=== PATIENT | female | born 1940 | race Two or more races ===

== ENCOUNTER 2021-04-27 17:07 | Inpatient (IN) | payer OTHER ==
[~2021-04-27] VITALS: Ht 160 cm; Wt 54.0 kg
[2021-04-27 18:32] LABS: Basophils # (auto) 0.1 10 ^3/uL (0-0.2); Basophils % (auto) 0.4 % (0.0-2.0); Eosinophils # (auto) 0 10 ^3/uL (0-0.8); Hematocrit 42.3 % (36.0-46.0); Hemoglobin 14.2 g/dL (12.2-16.2); Lymphocytes # (auto) 1.3 10 ^3/uL (0.4-5.4); Lymphocytes % (auto) 11.9 % (10.0-50.0); Mean Corpuscular Hemoglobin 28.7 pg (28.0-32.0); Mean Corpuscular Hgb Conc. 33.5 g/dL (32.0-36.0); Mean Corpuscular Volume 85.7 fL (80.0-100.0); Monocytes # (auto) 0.5 10 ^3/uL (0-1.3); Monocytes % (auto) 4.1 % (0.0-12.0); Neutrophils # (auto) 9.4 10 ^3/uL (1.6-8.6); Neutrophils % (auto) 83.6 % (37.0-80.0); Nucleated Red Blood Cells % 0.1 %; Red Blood Cells 4.94 10^6/uL (4.0-5.20); Red Cell Distribution Width 14.8 % (11.8-14.3); White Blood Cell 11.3 10^3/uL (4.4-10.8)
[2021-04-27 18:44] LABS: Albumin 4.1 g/dL (3.4-5.0); Calcium 9.7 mg/dL (8.5-10.1); Magnesium 2.1 mg/dL (1.6-2.6); Potassium 4.1 mmol/L (3.5-5.1)
[2021-04-27 18:49] LABS: Bilirubin, Total 0.5 mg/dL (0.2-1.0); Total Protein 7.7 g/dL (6.4-8.2)
[2021-04-27] MEDS ORDERED: MORPHINE SULFATE INJECTION 2 MG/ML SYRG IV ONE (19:00)
[2021-04-27] MEDS ORDERED: ONDANSETRON HCL 4 MG/2 ML VIAL IV ONE (19:00)
[2021-04-27] MEDS ORDERED: SODIUM CHLOR 0.9% PF (SALINE LOCK) 10ML VIAL/SYR IV ONE (19:00)
[2021-04-27] MEDS ORDERED: SOD CHL 0.45% 1,000 ML IV ONE (19:15)
[2021-04-27 20:18] LABS: Lactic Acid w/Reflex 3.5 mmol/L (0.4-2.0)
[2021-04-27] MEDS ORDERED: HYDROcodone-ACET 5/325MG TAB PO PRN (23:15)
[2021-04-27] MEDS ORDERED: SODIUM CHLORIDE 0.9% 1,000 ML IV SCH (23:15)
[2021-04-27] MEDS: MORPHINE SULFATE 4 MG/ML SYR/VIAL IV PRN (23:36)
[2021-04-27] MEDS: PIPERACILLIN-TAZOB 3.375GM 100 ML IV SCH (23:38)
[2021-04-27] MEDS ORDERED: metroNIDAZOLE 500MG/100ML 100 ML IV ONE (23:45)
[2021-04-28] VITALS (31 sets, daily range): BP systolic 89–146; BP diastolic 37–81
[2021-04-28] MEDS ORDERED: MORPHINE SULFATE INJECTION 2 MG/ML SYRG IV PRN (00:15)
[2021-04-28] MEDS ORDERED: NITROGLYCERIN 0.4 MG SL TAB SL PRN (00:15)
[2021-04-28] MEDS ORDERED: LEVO50TA7 PO (05:03)
[2021-04-28] MEDS ORDERED: OMEP-260 PO (05:03)
[2021-04-28] MEDS ORDERED: PARO1TAB33 PO (05:04)
[2021-04-28] MEDS ORDERED: ATOR20TA50 PO (05:04)
[2021-04-28] MEDS: MORPHINE SULFATE 4 MG/ML SYR/VIAL IV PRN (05:08)
[2021-04-28] MEDS ORDERED: metroNIDAZOLE 500MG/100ML 100 ML IV SCH (06:00)
[2021-04-28] MEDS: PIPERACILLIN-TAZOB 3.375GM 100 ML IV SCH ×2 (06:52→13:41)
[2021-04-28] MEDS ORDERED: LACTATED RINGER'S 1,000 ML IV SCH (07:45)
[2021-04-28] MEDS: metroNIDAZOLE 500MG/100ML 100 ML IV SCH ×4 (09:05→23:39)
[2021-04-28 09:10] LABS: Basophils # (auto) 0 10 ^3/uL (0-0.2); Basophils % (auto) 0.1 % (0.0-2.0); Eosinophils # (auto) 0 10 ^3/uL (0-0.8); Hematocrit 42.1 % (36.0-46.0); Lymphocytes # (auto) 0.9 10 ^3/uL (0.4-5.4); Mean Corpuscular Hemoglobin 28.4 pg (28.0-32.0); Mean Corpuscular Hgb Conc. 33.3 g/dL (32.0-36.0); Mean Corpuscular Volume 85.5 fL (80.0-100.0); Monocytes % (auto) 7.4 % (0.0-12.0); Neutrophils # (auto) 11.4 10 ^3/uL (1.6-8.6); Neutrophils % (auto) 85.5 % (37.0-80.0); Nucleated Red Blood Cells % 0.2 %; Red Blood Cells 4.93 10^6/uL (4.0-5.20); Red Cell Distribution Width 14.7 % (11.8-14.3); White Blood Cell 13.3 10^3/uL (4.4-10.8)
[2021-04-28] MEDS ORDERED: OMNIPAQUE ORAL SOLN 500ml 12mg/ml PO ONE (09:56)
[2021-04-28] MEDS ORDERED: FAMOTIDINE (10MG/ML) 2ML VL IV SCH (10:00)
[2021-04-28 10:42] LABS: Lactic Acid w/Reflex 3.8 mmol/L (0.4-2.0)
[2021-04-28 10:53] LABS: Potassium 3.7 mmol/L (3.5-5.1)
[2021-04-28] MEDS ORDERED: PANTOPRAZOLE 40 MG/10 ML VIAL INJ IV ONE (11:00)
[2021-04-28 11:33] LABS: INR 1.08 (0.9-1.15); Partial Thromboplastin Time 25.9 sec (23.6-33.0)
[2021-04-28 11:36] LABS: Albumin 3.4 g/dL (3.4-5.0); BUN/Creatinine Ratio 20.3; Bilirubin, Total 0.7 mg/dL (0.2-1.0); Calcium 8.6 mg/dL (8.5-10.1); Total Protein 6.9 g/dL (6.4-8.2)
[2021-04-28] MEDS ORDERED: IOHEXOL 300 MG/ML 100ML BOTTLE IJ ONE (12:06)
[2021-04-28] MEDS ORDERED: MIDAZOLAM HCL 2MG/2ML 2ml VIAL (1mg/ml) ONE (13:31)
[2021-04-28] MEDS ORDERED: ROCURONIUM 10MG/ML 10ML VIAL IV ONE (13:31)
[2021-04-28] MEDS ORDERED: fentaNYL CITRATE 100 MCG/2 ML VL ONE (13:31)
[2021-04-28] MEDS ORDERED: fentaNYL CITRATE 5 ML ONE (13:31)
[2021-04-28] MEDS ORDERED: HYDROmorphone HCL 2 MG/ML VL ONE (13:31)
[2021-04-28] MEDS ORDERED: ONDANSETRON HCL 4 MG/2 ML VIAL ONE (13:32)
[2021-04-28] MEDS ORDERED: SODIUM CHLORIDE LOCK 10 ML ONE (13:32)
[2021-04-28] MEDS ORDERED: NEOSTIGMINE 1 MG/ML INJ (10mg/10ML VIAL) ONE (13:32)
[2021-04-28] MEDS ORDERED: GLYCOPYRROLATE 0.2 MG/ML 1ML VIAL ONE (13:32)
[2021-04-28] MEDS ORDERED: ETOMIDATE (2MG/ML) 20ML VIAL IV ONE (13:32)
[2021-04-28] MEDS ORDERED: POVIDONE IODINE 10 % TOPICAL OINT 30GM TOP ONE (15:16)
[2021-04-28] MEDS ORDERED: MORPHINE SULFATE 4 MG/ML SYR/VIAL IV PRN (15:45)
[2021-04-28] MEDS ORDERED: METOCLOPRAMIDE HCL 5MG/ml INJ 2ml VIAL IV PRN (15:45)
[2021-04-28] MEDS ORDERED: HYDROmorphone HCL 2 MG/ML VL IV PRN (15:45)
[2021-04-28] MEDS: D5W/SOD CHL 0.45%/KCL 20MEQ 1,000 ML IV SCH ×2 (16:30→22:35)
[2021-04-28] MEDS: MIDAZOLAM DRIP 50 mg/50mL 50 ML IV SCH (16:54)
[2021-04-28] MEDS: NOREPINEPHRINE 8 MG/250ML KIT 250 ML IV SCH (17:30)
[2021-04-28] MEDS: PIPERACILLIN-TAZOB 2.25GM 50 ML IV SCH ×2 (18:00→23:41)
[2021-04-28] MEDS: fentaNYL Drip 2500mCg/250mlNS 250 ML IV SCH (21:22)
[2021-04-28] MEDS: LATANOPROST 0.005 % OPTH(EYE) SOL 2.5ML EACHEYE SCH (22:00)
[2021-04-28] MEDS: ATORVASTATIN 20 MG TAB PO SCH (22:00)
[2021-04-29] VITALS (83 sets, daily range): BP systolic 97–139; BP diastolic 34–77
[2021-04-29 04:35] LABS: Basophils # (auto) 0 10 ^3/uL (0-0.2); Eosinophils # (auto) 0 10 ^3/uL (0-0.8); Hemoglobin 9.6 g/dL (12.2-16.2); Lymphocytes # (auto) 0.9 10 ^3/uL (0.4-5.4); Monocytes # (auto) 0.8 10 ^3/uL (0-1.3); Neutrophils # (auto) 9.4 10 ^3/uL (1.6-8.6); Nucleated Red Blood Cells % 0.1 %; Red Cell Distribution Width 17.1 % (11.8-14.3); White Blood Cell 11.1 10^3/uL (4.4-10.8)
[2021-04-29 04:37] LABS: Basophils % (auto) 0.2 % (0.0-2.0); Hematocrit 32.6 % (36.0-46.0); Lymphocytes % (auto) 8.2 % (10.0-50.0); Mean Corpuscular Hemoglobin 28.9 pg (28.0-32.0); Mean Corpuscular Hgb Conc. 29.4 g/dL (32.0-36.0); Mean Corpuscular Volume 98.3 fL (80.0-100.0); Monocytes % (auto) 7.4 % (0.0-12.0); Neutrophils % (auto) 84.2 % (37.0-80.0); Red Blood Cells 3.32 10^6/uL (4.0-5.20)
[2021-04-29 04:57] LABS: INR 1.26 (0.9-1.15); Partial Thromboplastin Time 35.2 sec (23.6-33.0)
[2021-04-29] MEDS: metroNIDAZOLE 500MG/100ML 100 ML IV SCH ×3 (05:08→22:07)
[2021-04-29] MEDS: MIDAZOLAM DRIP 50 mg/50mL 50 ML IV SCH (05:51)
[2021-04-29] MEDS: LEVOTHYROXINE SODIUM 50 MCG TAB PO SCH (06:00)
[2021-04-29] MEDS: PIPERACILLIN-TAZOB 2.25GM 50 ML IV SCH ×2 (06:10→12:20)
[2021-04-29] MEDS: NOREPINEPHRINE 8 MG/250ML KIT 250 ML IV SCH ×2 (06:40→14:15)
[2021-04-29] MEDS: D5W/SOD CHL 0.45%/KCL 20MEQ 1,000 ML IV SCH (06:55)
[2021-04-29] MEDS: PARoxetine 20 MG TAB PO SCH (09:06)
[2021-04-29] MEDS: PANTOPRAZOLE 40 MG/10 ML VIAL INJ IV SCH (10:00)
[2021-04-29] MEDS ORDERED: FAMOTIDINE (10MG/ML) 2ML VL IV SCH (10:00)
[2021-04-29 10:21] LABS: Alkaline Phosphatase 54 U/L (45-117); Anion Gap 12 (5-15); Aspartate Aminotransferase 57 U/L (15-37); Blood Urea Nitrogen 34 mg/dL (7-18); Carbon Dioxide 14 mmol/L (21-32); Chloride 110 mmol/L (98-107); GFR African American 35 mL/min; GFR Non-African American 29 mL/min; Glucose 149 mg/dL (74-106); Potassium 5.5 mmol/L (3.5-5.1); Sodium 136 mmol/L (136-145)
[2021-04-29 10:22] LABS: Alanine Aminotransferase 22 U/L (13-56); Albumin 2.6 g/dL (3.4-5.0); Bilirubin, Total 0.7 mg/dL (0.2-1.0); Calcium 7.9 mg/dL (8.5-10.1)
[2021-04-29] MEDS ORDERED: OPTISON 3ml Vial for INJ IV ONE (10:48)
[2021-04-29] MEDS: D5W/SOD CHL 0.45% 1,000 ML IV SCH ×2 (12:00→20:42)
[2021-04-29] MEDS: fentaNYL Drip 2500mCg/250mlNS 250 ML IV SCH (16:15)
[2021-04-29] MEDS: ATORVASTATIN 20 MG TAB PO SCH (20:43)
[2021-04-29] MEDS: LATANOPROST 0.005 % OPTH(EYE) SOL 2.5ML EACHEYE SCH (22:00)
[2021-04-29] MEDS: SODIUM CHLOR 0.9% PF (SALINE LOCK) 10ML VIAL/SYR IV SCH (22:07)
[2021-04-30] VITALS (103 sets, daily range): BP systolic 83–127; BP diastolic 39–65
[2021-04-30] MEDS: MIDAZOLAM DRIP 50 mg/50mL 50 ML IV SCH ×2 (00:01→10:36)
[2021-04-30 04:22] LABS: Anion Gap 5 (5-15); Blood Urea Nitrogen 27 mg/dL (7-18); Calcium 7.8 mg/dL (8.5-10.1); Carbon Dioxide 21 mmol/L (21-32); Chloride 111 mmol/L (98-107); Glucose 133 mg/dL (74-106); Sodium 137 mmol/L (136-145)
[2021-04-30 04:24] LABS: BUN/Creatinine Ratio 19.3; Eosinophils # (auto) 0 10 ^3/uL (0-0.8); GFR African American 46 mL/min; GFR Non-African American 38 mL/min
[2021-04-30 04:27] LABS: Basophils # (auto) 0.1 10 ^3/uL (0-0.2); Basophils % (auto) 0.5 % (0.0-2.0); Hematocrit 33.5 % (36.0-46.0); Hemoglobin 10.9 g/dL (12.2-16.2); Lymphocytes # (auto) 1.5 10 ^3/uL (0.4-5.4); Lymphocytes % (auto) 7.5 % (10.0-50.0); Mean Corpuscular Hemoglobin 28.5 pg (28.0-32.0); Mean Corpuscular Hgb Conc. 32.7 g/dL (32.0-36.0); Mean Corpuscular Volume 87.1 fL (80.0-100.0); Monocytes # (auto) 1.8 10 ^3/uL (0-1.3); Monocytes % (auto) 9.1 % (0.0-12.0); Neutrophils # (auto) 16.6 10 ^3/uL (1.6-8.6); Neutrophils % (auto) 82.9 % (37.0-80.0); Red Blood Cells 3.85 10^6/uL (4.0-5.20); Red Cell Distribution Width 15.1 % (11.8-14.3); White Blood Cell 20.1 10^3/uL (4.4-10.8)
[2021-04-30] MEDS: D5W/SOD CHL 0.45% 1,000 ML IV SCH ×3 (04:30→20:00)
[2021-04-30] MEDS: metroNIDAZOLE 500MG/100ML 100 ML IV SCH ×2 (06:15→13:53)
[2021-04-30] MEDS: LEVOTHYROXINE SODIUM 50 MCG TAB PO SCH (06:17)
[2021-04-30] MEDS: PANTOPRAZOLE 40 MG/10 ML VIAL INJ IV SCH (09:29)
[2021-04-30] MEDS: SODIUM CHLOR 0.9% PF (SALINE LOCK) 10ML VIAL/SYR IV SCH ×2 (09:30→22:31)
[2021-04-30] MEDS: PARoxetine 20 MG TAB PO SCH (09:30)
[2021-04-30] MEDS: NOREPINEPHRINE 8 MG/250ML KIT 250 ML IV SCH ×2 (15:59)
[2021-04-30] MEDS: fentaNYL Drip 2500mCg/250mlNS 250 ML IV SCH (16:15)
[2021-04-30] MEDS: MEROPENEM 1GM IVPB 100 ML IV SCH (18:06)
[2021-04-30] MEDS: ATORVASTATIN 20 MG TAB PO SCH (22:00)
[2021-04-30] MEDS: LATANOPROST 0.005 % OPTH(EYE) SOL 2.5ML EACHEYE SCH (22:00)
[2021-05-01] VITALS (107 sets, daily range): BP systolic 87–140; BP diastolic 41–65
[2021-05-01] MEDS: D5W/SOD CHL 0.45% 1,000 ML IV SCH ×3 (04:50→18:26)
[2021-05-01] MEDS: MEROPENEM 1GM IVPB 100 ML IV SCH ×2 (05:55→17:28)
[2021-05-01] MEDS: LEVOTHYROXINE SODIUM 50 MCG TAB PO SCH (07:00)
[2021-05-01 07:09] LABS: Basophils # (auto) 0 10 ^3/uL (0-0.2); Basophils % (auto) 0.3 % (0.0-2.0); Eosinophils # (auto) 0 10 ^3/uL (0-0.8); Eosinophils % (auto) 0.1 % (0.0-7.0); Hematocrit 25.9 % (36.0-46.0); Hemoglobin 8.8 g/dL (12.2-16.2); Lymphocytes # (auto) 1.1 10 ^3/uL (0.4-5.4); Mean Corpuscular Hemoglobin 29.2 pg (28.0-32.0); Mean Corpuscular Hgb Conc. 33.8 g/dL (32.0-36.0); Mean Corpuscular Volume 86.2 fL (80.0-100.0); Monocytes # (auto) 0.9 10 ^3/uL (0-1.3); Monocytes % (auto) 8.2 % (0.0-12.0); Neutrophils # (auto) 8.4 10 ^3/uL (1.6-8.6); Neutrophils % (auto) 80.4 % (37.0-80.0); Nucleated Red Blood Cells % 0.1 %; Red Blood Cells 3.01 10^6/uL (4.0-5.20); White Blood Cell 10.4 10^3/uL (4.4-10.8)
[2021-05-01 07:25] LABS: Potassium 3.7 mmol/L (3.5-5.1)
[2021-05-01 08:38] LABS: BUN/Creatinine Ratio 12.9
[2021-05-01] MEDS: PANTOPRAZOLE 40 MG/10 ML VIAL INJ IV SCH (09:12)
[2021-05-01] MEDS: SODIUM CHLOR 0.9% PF (SALINE LOCK) 10ML VIAL/SYR IV SCH ×2 (09:13→22:50)
[2021-05-01] MEDS: PARoxetine 20 MG TAB PO SCH (09:13)
[2021-05-01] MEDS: MIDAZOLAM DRIP 50 mg/50mL 50 ML IV SCH (19:00)
[2021-05-01] MEDS: fentaNYL Drip 2500mCg/250mlNS 250 ML IV SCH (19:00)
[2021-05-01] MEDS: LATANOPROST 0.005 % OPTH(EYE) SOL 2.5ML EACHEYE SCH (22:50)
[2021-05-01] MEDS: ATORVASTATIN 20 MG TAB PO SCH (22:50)
[2021-05-02] VITALS (100 sets, daily range): BP systolic 81–202; BP diastolic 40–110
[2021-05-02 03:30] LABS: Basophils # (auto) 0 10 ^3/uL (0-0.2); Eosinophils # (auto) 0.1 10 ^3/uL (0-0.8); Hematocrit 23.2 % (36.0-46.0); Hemoglobin 7.8 g/dL (12.2-16.2); Lymphocytes # (auto) 1.1 10 ^3/uL (0.4-5.4); Mean Corpuscular Hemoglobin 29.3 pg (28.0-32.0); Monocytes # (auto) 0.8 10 ^3/uL (0-1.3); Neutrophils # (auto) 4.9 10 ^3/uL (1.6-8.6); White Blood Cell 6.9 10^3/uL (4.4-10.8)
[2021-05-02 03:34] LABS: Basophils % (auto) 0.1 % (0.0-2.0); Eosinophils % (auto) 1.1 % (0.0-7.0); Lymphocytes % (auto) 15.7 % (10.0-50.0); Mean Corpuscular Hgb Conc. 33.5 g/dL (32.0-36.0); Mean Corpuscular Volume 87.5 fL (80.0-100.0); Monocytes % (auto) 11.9 % (0.0-12.0); Neutrophils % (auto) 71.2 % (37.0-80.0); Nucleated Red Blood Cells % 0.3 %; Red Blood Cells 2.66 10^6/uL (4.0-5.20); Red Cell Distribution Width 14.8 % (11.8-14.3)
[2021-05-02 03:55] LABS: Potassium 3.1 mmol/L (3.5-5.1)
[2021-05-02 04:00] LABS: BUN/Creatinine Ratio 10.2; Calcium 7.3 mg/dL (8.5-10.1)
[2021-05-02] MEDS: D5W/SOD CHL 0.45% 1,000 ML IV SCH ×2 (06:01→13:26)
[2021-05-02] MEDS: MEROPENEM 1GM IVPB 100 ML IV SCH ×2 (06:02→17:31)
[2021-05-02] MEDS: LEVOTHYROXINE SODIUM 50 MCG TAB PO SCH (06:02)
[2021-05-02] MEDS: POTASSIUM CHL 10MEQ/50ML 50 ML IV SCH ×4 (08:05→13:33)
[2021-05-02] MEDS: PARoxetine 20 MG TAB PO SCH (10:00)
[2021-05-02] MEDS: PANTOPRAZOLE 40 MG/10 ML VIAL INJ IV SCH (10:02)
[2021-05-02] MEDS: SODIUM CHLOR 0.9% PF (SALINE LOCK) 10ML VIAL/SYR IV SCH ×2 (10:03→22:00)
[2021-05-02] MEDS: NOREPINEPHRINE 8 MG/250ML KIT 250 ML IV SCH (13:45)
[2021-05-02] MEDS: MIDAZOLAM DRIP 50 mg/50mL 50 ML IV SCH (16:15)
[2021-05-02] MEDS: ATORVASTATIN 20 MG TAB PO SCH (22:00)
[2021-05-02] MEDS: LATANOPROST 0.005 % OPTH(EYE) SOL 2.5ML EACHEYE SCH (22:00)
[2021-05-03] VITALS (65 sets, daily range): BP systolic 76–200; BP diastolic 41–102
[2021-05-03 03:42] LABS: Basophils # (auto) 0 10 ^3/uL (0-0.2); Basophils % (auto) 0.3 % (0.0-2.0); Eosinophils # (auto) 0.2 10 ^3/uL (0-0.8); Eosinophils % (auto) 3.9 % (0.0-7.0); Hematocrit 24.7 % (36.0-46.0); Hemoglobin 8.3 g/dL (12.2-16.2); Lymphocytes # (auto) 0.9 10 ^3/uL (0.4-5.4); Lymphocytes % (auto) 17.1 % (10.0-50.0); Mean Corpuscular Hgb Conc. 33.6 g/dL (32.0-36.0); Mean Corpuscular Volume 86.4 fL (80.0-100.0); Monocytes # (auto) 0.7 10 ^3/uL (0-1.3); Monocytes % (auto) 13.1 % (0.0-12.0); Neutrophils # (auto) 3.6 10 ^3/uL (1.6-8.6); Neutrophils % (auto) 65.6 % (37.0-80.0); Nucleated Red Blood Cells % 0.3 %; Red Blood Cells 2.86 10^6/uL (4.0-5.20); Red Cell Distribution Width 14.6 % (11.8-14.3); White Blood Cell 5.4 10^3/uL (4.4-10.8)
[2021-05-03 04:01] LABS: Potassium 3.1 mmol/L (3.5-5.1)
[2021-05-03 04:09] LABS: BUN/Creatinine Ratio 14.9; Calcium 7.9 mg/dL (8.5-10.1)
[2021-05-03] MEDS: MEROPENEM 1GM IVPB 100 ML IV SCH ×2 (04:56→17:54)
[2021-05-03] MEDS: LEVOTHYROXINE SODIUM 50 MCG TAB PO SCH (07:00)
[2021-05-03] MEDS: D5W/SOD CHL 0.45% 1,000 ML IV SCH ×4 (07:17→20:35)
[2021-05-03] MEDS ORDERED: POTASSIUM CHL 10MEQ/50ML 50 ML IV SCH (08:30)
[2021-05-03] MEDS: PANTOPRAZOLE 40 MG/10 ML VIAL INJ IV SCH (09:05)
[2021-05-03] MEDS: PARoxetine 20 MG TAB PO SCH (09:06)
[2021-05-03] MEDS: SODIUM CHLOR 0.9% PF (SALINE LOCK) 10ML VIAL/SYR IV SCH ×2 (09:06→22:37)
[2021-05-03] MEDS: POTASSIUM CHL 10MEQ/50ML 50 ML IV SCH ×6 (09:10→15:15)
[2021-05-03] MEDS ORDERED: FUROSEMIDE 20 MG/2 ML VIAL IV ONE (11:45)
[2021-05-03] MEDS: LABETALOL HCL 5 MG/ML 4ML SYRINGE IV PRN ×3 (12:24→16:49)
[2021-05-03] MEDS: NOREPINEPHRINE 8 MG/250ML KIT 250 ML IV SCH (13:45)
[2021-05-03] MEDS: fentaNYL Drip 2500mCg/250mlNS 250 ML IV SCH (16:15)
[2021-05-03] MEDS: MIDAZOLAM DRIP 50 mg/50mL 50 ML IV SCH (16:15)
[2021-05-03] MEDS: MORPHINE SULFATE 4 MG/ML SYR/VIAL IV PRN (19:50)
[2021-05-03] MEDS: ACETAMINOPHEN 325 MG TAB PO PRN (19:51)
[2021-05-03] MEDS: ATORVASTATIN 20 MG TAB PO SCH (22:00)
[2021-05-03] MEDS: LATANOPROST 0.005 % OPTH(EYE) SOL 2.5ML EACHEYE SCH (22:37)
[2021-05-04] VITALS (19 sets, daily range): BP systolic 133–179; BP diastolic 61–91
[2021-05-04 05:06] LABS: Basophils # (auto) 0 10 ^3/uL (0-0.2); Basophils % (auto) 0.3 % (0.0-2.0); Eosinophils # (auto) 0.1 10 ^3/uL (0-0.8); Eosinophils % (auto) 2.2 % (0.0-7.0); Hematocrit 29.1 % (36.0-46.0); Hemoglobin 9.7 g/dL (12.2-16.2); Lymphocytes # (auto) 0.9 10 ^3/uL (0.4-5.4); Mean Corpuscular Hemoglobin 28.7 pg (28.0-32.0); Mean Corpuscular Hgb Conc. 33.3 g/dL (32.0-36.0); Mean Corpuscular Volume 86.1 fL (80.0-100.0); Monocytes # (auto) 0.9 10 ^3/uL (0-1.3); Monocytes % (auto) 14.1 % (0.0-12.0); Neutrophils # (auto) 4.5 10 ^3/uL (1.6-8.6); Neutrophils % (auto) 69.4 % (37.0-80.0); Nucleated Red Blood Cells % 0.4 %; Red Blood Cells 3.38 10^6/uL (4.0-5.20); Red Cell Distribution Width 14.5 % (11.8-14.3); White Blood Cell 6.5 10^3/uL (4.4-10.8)
[2021-05-04 05:19] LABS: Calcium 8.4 mg/dL (8.5-10.1); Potassium 3.4 mmol/L (3.5-5.1)
[2021-05-04 05:22] LABS: BUN/Creatinine Ratio 6.1
[2021-05-04] MEDS: D5W/SOD CHL 0.45% 1,000 ML IV SCH (05:57)
[2021-05-04] MEDS: MEROPENEM 1GM IVPB 100 ML IV SCH ×2 (05:57→17:52)
[2021-05-04] MEDS: fentaNYL Drip 2500mCg/250mlNS 250 ML IV SCH ×2 (07:49→09:06)
[2021-05-04] MEDS: PANTOPRAZOLE 40 MG/10 ML VIAL INJ IV SCH (09:04)
[2021-05-04] MEDS: PARoxetine 20 MG TAB PO SCH (09:05)
[2021-05-04] MEDS: SODIUM CHLOR 0.9% PF (SALINE LOCK) 10ML VIAL/SYR IV SCH ×2 (09:05→21:32)
[2021-05-04] MEDS: NOREPINEPHRINE 8 MG/250ML KIT 250 ML IV SCH (09:05)
[2021-05-04] MEDS: MORPHINE SULFATE 4 MG/ML SYR/VIAL IV PRN (09:05)
[2021-05-04] MEDS: MIDAZOLAM DRIP 50 mg/50mL 50 ML IV SCH (09:06)
[2021-05-04] MEDS: HYDROmorphone HCL 2 MG/ML VL IV PRN ×5 (10:30→21:50)
[2021-05-04] MEDS ORDERED: TPN PER PHARMACY 0 ML IV SCH (13:45)
[2021-05-04] MEDS: POTASSIUM CHL 10MEQ/50ML 50 ML IV SCH ×4 (14:29→19:17)
[2021-05-04] MEDS: KETOROLAC TROMETH 30 MG/ML 1ML VIAL IV PRN ×2 (16:15→22:03)
[2021-05-04] MEDS ORDERED: AMINO ACID INFUSION IN D10W 1,000 ML IV NR (20:00)
[2021-05-04] MEDS: LATANOPROST 0.005 % OPTH(EYE) SOL 2.5ML EACHEYE SCH (21:32)
[2021-05-04] MEDS: ATORVASTATIN 20 MG TAB PO SCH (21:32)
[2021-05-04] MEDS: LABETALOL HCL 5 MG/ML 4ML SYRINGE IV PRN (22:04)
[2021-05-05] VITALS (17 sets, daily range): BP systolic 116–178; BP diastolic 62–80
[2021-05-05] MEDS ORDERED: DEXTROSE (50%) 50ML SYRG IV SCH
[2021-05-05] MEDS: LABETALOL HCL 5 MG/ML 4ML SYRINGE IV PRN ×3 (02:21→14:36)
[2021-05-05] MEDS: HYDROmorphone HCL 2 MG/ML VL IV PRN ×3 (02:49→20:00)
[2021-05-05 03:32] LABS: Basophils # (auto) 0.1 10 ^3/uL (0-0.2); Basophils % (auto) 0.8 % (0.0-2.0); Eosinophils # (auto) 0.3 10 ^3/uL (0-0.8); Eosinophils % (auto) 4.5 % (0.0-7.0); Hematocrit 30.6 % (36.0-46.0); Hemoglobin 10.2 g/dL (12.2-16.2); Lymphocytes # (auto) 1.1 10 ^3/uL (0.4-5.4); Lymphocytes % (auto) 15.8 % (10.0-50.0); Mean Corpuscular Hemoglobin 28.8 pg (28.0-32.0); Mean Corpuscular Hgb Conc. 33.5 g/dL (32.0-36.0); Mean Corpuscular Volume 85.9 fL (80.0-100.0); Monocytes # (auto) 0.9 10 ^3/uL (0-1.3); Monocytes % (auto) 12.7 % (0.0-12.0); Neutrophils # (auto) 4.5 10 ^3/uL (1.6-8.6); Neutrophils % (auto) 66.2 % (37.0-80.0); Nucleated Red Blood Cells % 0.2 %; Red Blood Cells 3.56 10^6/uL (4.0-5.20); Red Cell Distribution Width 14.7 % (11.8-14.3); White Blood Cell 6.7 10^3/uL (4.4-10.8)
[2021-05-05 03:42] LABS: BUN/Creatinine Ratio 19.6; Calcium 8.8 mg/dL (8.5-10.1); Potassium 4.4 mmol/L (3.5-5.1)
[2021-05-05] MEDS: ACCU-CHEK COMFORT CURVE STRIP VI SCH ×4 (05:50→18:00)
[2021-05-05] MEDS: KETOROLAC TROMETH 30 MG/ML 1ML VIAL IV PRN (05:50)
[2021-05-05] MEDS: MEROPENEM 1GM IVPB 100 ML IV SCH ×2 (05:50→18:00)
[2021-05-05] MEDS: InsuLIN REG 1unit/0.01ml Soln (100units/ml) SC SCH ×4 (05:50→18:00)
[2021-05-05] MEDS: ACETAMINOPHEN 325 MG TAB PO PRN ×2 (08:44→20:00)
[2021-05-05] MEDS: PARoxetine 20 MG TAB PO SCH (10:00)
[2021-05-05] MEDS: LEVOTHYROXINE SODIUM 100 MCG/5 ML INJ IV SCH (10:00)
[2021-05-05] MEDS: SODIUM CHLOR 0.9% PF (SALINE LOCK) 10ML VIAL/SYR IV SCH ×2 (10:04→22:00)
[2021-05-05] MEDS: PANTOPRAZOLE 40 MG/10 ML VIAL INJ IV SCH (10:04)
[2021-05-05 11:40] LABS: Albumin 2.3 g/dL (3.4-5.0); Bilirubin, Direct 0.1 mg/dL (0-0.2); Magnesium 2.5 mg/dL (1.6-2.6)
[2021-05-05 11:43] LABS: Bilirubin, Total 0.4 mg/dL (0.2-1.0); Phosphorus 2.9 mg/dL (2.5-4.90); Total Protein 6.1 g/dL (6.4-8.2)
[2021-05-05] MEDS: NOREPINEPHRINE 8 MG/250ML KIT 250 ML IV SCH (13:45)
[2021-05-05] MEDS ORDERED: TPN PER PHARMACY IV NR ×8 (20:00)
[2021-05-05] MEDS: ATORVASTATIN 20 MG TAB PO SCH (22:00)
[2021-05-05] MEDS: LATANOPROST 0.005 % OPTH(EYE) SOL 2.5ML EACHEYE SCH (22:00)
[2021-05-06] VITALS: BP 121/66
[2021-05-06 05:00] VITALS: BP 139/69
[2021-05-06 05:20] LABS: Basophils # (auto) 0 10 ^3/uL (0-0.2); Basophils % (auto) 0.6 % (0.0-2.0); Eosinophils # (auto) 0.3 10 ^3/uL (0-0.8); Eosinophils % (auto) 3.7 % (0.0-7.0); Hematocrit 34.3 % (36.0-46.0); Hemoglobin 11.5 g/dL (12.2-16.2); Lymphocytes % (auto) 12.7 % (10.0-50.0); Mean Corpuscular Hemoglobin 28.7 pg (28.0-32.0); Mean Corpuscular Hgb Conc. 33.4 g/dL (32.0-36.0); Monocytes # (auto) 0.8 10 ^3/uL (0-1.3); Monocytes % (auto) 10.4 % (0.0-12.0); Neutrophils # (auto) 5.5 10 ^3/uL (1.6-8.6); Neutrophils % (auto) 72.6 % (37.0-80.0); Nucleated Red Blood Cells % 0.2 %; Red Blood Cells 3.99 10^6/uL (4.0-5.20); Red Cell Distribution Width 14.6 % (11.8-14.3); White Blood Cell 7.5 10^3/uL (4.4-10.8)
[2021-05-06 05:53] LABS: Albumin 2.5 g/dL (3.4-5.0); BUN/Creatinine Ratio 31.1; Calcium 9.2 mg/dL (8.5-10.1); Magnesium 2.7 mg/dL (1.6-2.6); Phosphorus 2.9 mg/dL (2.5-4.90); Potassium 3.8 mmol/L (3.5-5.1)
[2021-05-06 05:56] LABS: Bilirubin, Total 0.4 mg/dL (0.2-1.0); Total Protein 6.4 g/dL (6.4-8.2)
[2021-05-06] MEDS: ACCU-CHEK COMFORT CURVE STRIP VI SCH ×5 (05:58→23:38)
[2021-05-06] MEDS: InsuLIN REG 1unit/0.01ml Soln (100units/ml) SC SCH ×5 (05:58→23:38)
[2021-05-06] MEDS: MEROPENEM 1GM IVPB 100 ML IV SCH ×2 (05:58→18:18)
[2021-05-06] MEDS: HYDROmorphone HCL 2 MG/ML VL IV PRN ×3 (06:01→21:59)
[2021-05-06 06:31] LABS: Pre Albumin 19.4 mg/dL (20.0-40.0)
[2021-05-06] MEDS: PARoxetine 20 MG TAB PO SCH (10:00)
[2021-05-06] MEDS: PANTOPRAZOLE 40 MG/10 ML VIAL INJ IV SCH (10:35)
[2021-05-06] MEDS: SODIUM CHLOR 0.9% PF (SALINE LOCK) 10ML VIAL/SYR IV SCH ×2 (10:36→21:58)
[2021-05-06] MEDS: LEVOTHYROXINE SODIUM 100 MCG/5 ML INJ IV SCH (10:36)
[2021-05-06] MEDS: LORazepam 2MG/ML-1ML VIAL IV PRN (16:20)
[2021-05-06] MEDS ORDERED: HALOPERIDOL LACTATE 5 MG/ML INJ VIAL IM PRN (20:15)
[2021-05-06] MEDS: TPN PER PHARMACY IV NR ×6 (20:20)
[2021-05-06] MEDS: ATORVASTATIN 20 MG TAB PO SCH (21:58)
[2021-05-06] MEDS: LATANOPROST 0.005 % OPTH(EYE) SOL 2.5ML EACHEYE SCH (21:58)
[2021-05-06 22:00] VITALS: BP_SYST 150; BP_DIAS 73; BP_DIAS 74
[2021-05-06] MEDS: ONDANSETRON HCL 4 MG/2 ML VIAL IV PRN (22:00)
[2021-05-07 05:00] VITALS: BP_SYST 123; BP_SYST 127; BP_DIAS 51; BP_DIAS 74
[2021-05-07] MEDS: ACCU-CHEK COMFORT CURVE STRIP VI SCH ×4 (05:28→23:39)
[2021-05-07] MEDS: MEROPENEM 1GM IVPB 100 ML IV SCH ×2 (05:28→18:45)
[2021-05-07] MEDS: InsuLIN REG 1unit/0.01ml Soln (100units/ml) SC SCH ×4 (05:29→23:40)
[2021-05-07 06:52] LABS: Potassium 3.1 mmol/L (3.5-5.1)
[2021-05-07 06:59] LABS: Basophils # (auto) 0 10 ^3/uL (0-0.2); Basophils % (auto) 0.5 % (0.0-2.0); Eosinophils # (auto) 0.2 10 ^3/uL (0-0.8); Hematocrit 30.1 % (36.0-46.0); Hemoglobin 10.2 g/dL (12.2-16.2); Lymphocytes # (auto) 1.1 10 ^3/uL (0.4-5.4); Lymphocytes % (auto) 14.4 % (10.0-50.0); Mean Corpuscular Hemoglobin 28.9 pg (28.0-32.0); Mean Corpuscular Hgb Conc. 33.7 g/dL (32.0-36.0); Mean Corpuscular Volume 85.7 fL (80.0-100.0); Monocytes # (auto) 0.8 10 ^3/uL (0-1.3); Monocytes % (auto) 10.3 % (0.0-12.0); Neutrophils # (auto) 5.5 10 ^3/uL (1.6-8.6); Neutrophils % (auto) 72.8 % (37.0-80.0); Red Blood Cells 3.51 10^6/uL (4.0-5.20); Red Cell Distribution Width 14.5 % (11.8-14.3); White Blood Cell 7.5 10^3/uL (4.4-10.8)
[2021-05-07 07:09] LABS: Albumin 2.5 g/dL (3.4-5.0); BUN/Creatinine Ratio 38.7; Calcium 8.8 mg/dL (8.5-10.1); Magnesium 2.7 mg/dL (1.6-2.6)
[2021-05-07 07:12] LABS: Bilirubin, Total 0.4 mg/dL (0.2-1.0); Phosphorus 2.9 mg/dL (2.5-4.90); Total Protein 6.1 g/dL (6.4-8.2)
[2021-05-07] MEDS ORDERED: GLYB2.5T8 PO (07:25)
[2021-05-07] MEDS ORDERED: GLYB1.257 PO (07:25)
[2021-05-07] MEDS ORDERED: BENA5TAB9 PO (07:25)
[2021-05-07] MEDS ORDERED: METF-372 PO (07:25)
[2021-05-07] MEDS ORDERED: ASPI-498 OR (07:25)
[2021-05-07 09:00] VITALS: BP 110/69
[2021-05-07] MEDS: LEVOTHYROXINE SODIUM 100 MCG/5 ML INJ IV SCH (09:14)
[2021-05-07] MEDS: SODIUM CHLOR 0.9% PF (SALINE LOCK) 10ML VIAL/SYR IV SCH ×2 (09:15→21:47)
[2021-05-07] MEDS: PANTOPRAZOLE 40 MG/10 ML VIAL INJ IV SCH (09:15)
[2021-05-07] MEDS: PARoxetine 20 MG TAB PO SCH (09:15)
[2021-05-07] MEDS ORDERED: GASTROGRAFIN 120 ML SOL ONE (11:11)
[2021-05-07] MEDS ORDERED: POTASSIUM PHOSPHATE 26.4 MEQ in SODIUM CHL 0.9% 100 ML IV ONE (11:30)
[2021-05-07] MEDS: ONDANSETRON HCL 4 MG/2 ML VIAL IV PRN (13:27)
[2021-05-07 13:29] VITALS: BP 109/87
[2021-05-07] MEDS: LORazepam 2MG/ML-1ML VIAL IV PRN ×3 (13:50→22:55)
[2021-05-07] MEDS: HYDROmorphone HCL 2 MG/ML VL IV PRN (16:09)
[2021-05-07] MEDS: TPN PER PHARMACY IV NR ×6 (16:19)
[2021-05-07 17:05] VITALS: BP 120/62
[2021-05-07] MEDS ORDERED: TPN PER PHARMACY IV NR ×5 (20:00)
[2021-05-07] MEDS: ATORVASTATIN 20 MG TAB PO SCH (21:11)
[2021-05-07] MEDS: LATANOPROST 0.005 % OPTH(EYE) SOL 2.5ML EACHEYE SCH (21:47)
[2021-05-07 23:32] VITALS: BP 140/74
[2021-05-08] MEDS: HYDROmorphone HCL 2 MG/ML VL IV PRN (00:45)
[2021-05-08 04:48] VITALS: BP 125/71
[2021-05-08] MEDS: MEROPENEM 1GM IVPB 100 ML IV SCH ×2 (06:01→17:29)
[2021-05-08 06:02] LABS: Chloride 110 mmol/L (98-107); Potassium 4.8 mmol/L (3.5-5.1); Sodium 141 mmol/L (136-145)
[2021-05-08 06:07] LABS: Alanine Aminotransferase 79 U/L (13-56); Albumin 2.4 g/dL (3.4-5.0); Anion Gap 4 (5-15); Aspartate Aminotransferase 124 U/L (15-37); BUN/Creatinine Ratio 49.2; Blood Urea Nitrogen 32 mg/dL (7-18); Calcium 8.6 mg/dL (8.5-10.1); Carbon Dioxide 27 mmol/L (21-32); GFR African American 112 mL/min; GFR Non-African American 93 mL/min; Glucose 121 mg/dL (74-106); Magnesium 2.6 mg/dL (1.6-2.6)
[2021-05-08 06:09] LABS: Alkaline Phosphatase 113 U/L (45-117); Bilirubin, Total 0.5 mg/dL (0.2-1.0); Phosphorus 2.6 mg/dL (2.5-4.90); Total Protein 6.4 g/dL (6.4-8.2)
[2021-05-08] MEDS: ACCU-CHEK COMFORT CURVE STRIP VI SCH ×4 (06:12→23:32)
[2021-05-08] MEDS: InsuLIN REG 1unit/0.01ml Soln (100units/ml) SC SCH ×4 (06:16→23:47)
[2021-05-08 08:00] VITALS: BP 135/77
[2021-05-08] MEDS: PARoxetine 20 MG TAB PO SCH (10:00)
[2021-05-08] MEDS: SODIUM CHLOR 0.9% PF (SALINE LOCK) 10ML VIAL/SYR IV SCH ×2 (10:44→21:10)
[2021-05-08] MEDS: PANTOPRAZOLE 40 MG/10 ML VIAL INJ IV SCH (10:44)
[2021-05-08] MEDS: LEVOTHYROXINE SODIUM 100 MCG/5 ML INJ IV SCH (11:59)
[2021-05-08 13:00] VITALS: BP 112/52
[2021-05-08] MEDS ORDERED: METOPROLOL SUCCINATE XL 50 MG TAB PO ONE (13:00)
[2021-05-08] MEDS: LORazepam 2MG/ML-1ML VIAL IV PRN ×2 (15:58→22:29)
[2021-05-08] MEDS ORDERED: TPN PER PHARMACY IV NR ×4 (20:00)
[2021-05-08] MEDS: METOPROLOL SUCCINATE XL 50 MG TAB PO SCH (21:10)
[2021-05-08] MEDS: ATORVASTATIN 20 MG TAB PO SCH (21:10)
[2021-05-08] MEDS: LATANOPROST 0.005 % OPTH(EYE) SOL 2.5ML EACHEYE SCH (21:10)
[2021-05-08] MEDS: ACETAMINOPHEN 325 MG TAB PO PRN (21:30)
[2021-05-09] MEDS: HYDROmorphone HCL 2 MG/ML VL IV PRN ×3 (00:42→19:38)
[2021-05-09] MEDS: InsuLIN REG 1unit/0.01ml Soln (100units/ml) SC SCH ×3 (06:00→18:00)
[2021-05-09] MEDS: ACCU-CHEK COMFORT CURVE STRIP VI SCH ×3 (06:11→18:00)
[2021-05-09] MEDS: MEROPENEM 1GM IVPB 100 ML IV SCH ×2 (06:11→18:00)
[2021-05-09 06:43] LABS: Basophils # (auto) 0.1 10 ^3/uL (0-0.2); Basophils % (auto) 0.8 % (0.0-2.0); Eosinophils # (auto) 0.3 10 ^3/uL (0-0.8); Eosinophils % (auto) 3.5 % (0.0-7.0); Hematocrit 30.7 % (36.0-46.0); Hemoglobin 10.2 g/dL (12.2-16.2); Lymphocytes # (auto) 1.3 10 ^3/uL (0.4-5.4); Lymphocytes % (auto) 16.2 % (10.0-50.0); Mean Corpuscular Hemoglobin 28.8 pg (28.0-32.0); Mean Corpuscular Hgb Conc. 33.3 g/dL (32.0-36.0); Mean Corpuscular Volume 86.3 fL (80.0-100.0); Monocytes # (auto) 0.8 10 ^3/uL (0-1.3); Monocytes % (auto) 9.8 % (0.0-12.0); Neutrophils # (auto) 5.8 10 ^3/uL (1.6-8.6); Neutrophils % (auto) 69.7 % (37.0-80.0); Nucleated Red Blood Cells % 0.1 %; Red Blood Cells 3.56 10^6/uL (4.0-5.20); Red Cell Distribution Width 15.1 % (11.8-14.3); White Blood Cell 8.3 10^3/uL (4.4-10.8)
[2021-05-09 06:59] LABS: Albumin 2.7 g/dL (3.4-5.0); Magnesium 2.6 mg/dL (1.6-2.6)
[2021-05-09 07:02] LABS: Bilirubin, Total 0.6 mg/dL (0.2-1.0); Phosphorus 2.2 mg/dL (2.5-4.90); Total Protein 6.3 g/dL (6.4-8.2)
[2021-05-09] MEDS ORDERED: POTASSIUM PHOSPHATE 44 MEQ in D5W 5% 250 ML IV ONE (08:30)
[2021-05-09] MEDS: PANTOPRAZOLE 40 MG/10 ML VIAL INJ IV SCH (11:48)
[2021-05-09] MEDS: SODIUM CHLOR 0.9% PF (SALINE LOCK) 10ML VIAL/SYR IV SCH (11:48)
[2021-05-09] MEDS: PARoxetine 20 MG TAB PO SCH (11:49)
[2021-05-09] MEDS: LEVOTHYROXINE SODIUM 100 MCG/5 ML INJ IV SCH (11:49)
[2021-05-09] MEDS: METOPROLOL SUCCINATE XL 50 MG TAB PO SCH (11:52)
[2021-05-09] MEDS ORDERED: METO-6 PO (11:52)
[2021-05-09] MEDS ORDERED: POTASSIUM CHL 10MEQ/50ML 50 ML IV ONE (12:45)
[2021-05-09 17:19] VITALS: BP 109/62
[2021-05-09 18:38] LABS: Albumin 2.7 g/dL (3.4-5.0); BUN/Creatinine Ratio 37.3; Calcium 8.5 mg/dL (8.5-10.1); Potassium 3.6 mmol/L (3.5-5.1)
[2021-05-09 18:40] LABS: Bilirubin, Total 0.5 mg/dL (0.2-1.0); Total Protein 6.6 g/dL (6.4-8.2)
[2021-05-09] MEDS ORDERED: NOREPINEPHRINE BITARTRATE 1 MG/ML IV ONE (18:59)
[2021-05-09] MEDS ORDERED: TPN PER PHARMACY IV NR ×7 (20:00)
== END 2021-05-09 19:00 | disposition home health service (06) | DRG 853 ==
LOC: ER 17:08 → TELE 04-28 00:14 → TELE-CENTR 04-28 04:30 → ICU WEST 04-28 17:30 → TELE-CENTR 05-05 23:44
PROVIDERS: ADMIT Nurse Practitioner Family; ATTEND Internal Medicine Pulmonary Disease
PROC: 0D180Z8 Bypass Small Intestine to Small Intestine, Open Approach (ICD-10-PCS; 2021-04-28)
PROC: 5A1955Z Respiratory Ventilation, Greater than 96 Consecutive Hours (ICD-10-PCS; 2021-04-28)
PROC: 0BH17EZ Insertion of Endotracheal Airway into Trachea, Via Natural or Artificial Opening (ICD-10-PCS; 2021-04-28)
PROC: 0DB80ZZ Excision of Small Intestine, Open Approach (ICD-10-PCS; principal; 2021-04-28 14:04)
DX: A41.9 Sepsis, unspecified organism (principal); I21.4 Non-ST elevation (NSTEMI) myocardial infarction; R65.21 Severe sepsis with septic shock; J96.01 Acute respiratory failure with hypoxia; G93.41 Metabolic encephalopathy; K65.9 Peritonitis, unspecified; K56.1 Intussusception; K55.9 Vascular disorder of intestine, unspecified; N17.9 Acute kidney failure, unspecified; G93.1 Anoxic brain damage, not elsewhere classified; D68.59 Other primary thrombophilia; J90 Pleural effusion, not elsewhere classified; K46.0 Unspecified abdominal hernia with obstruction, without gangrene; H40.89 Other specified glaucoma; Z20.822 Contact with and (suspected) exposure to COVID-19; I10 Essential (primary) hypertension; I44.7 Left bundle-branch block, unspecified; E66.01 Morbid (severe) obesity due to excess calories; E78.5 Hyperlipidemia, unspecified; K21.9 Gastro-esophageal reflux disease without esophagitis; K29.70 Gastritis, unspecified, without bleeding; F32.9 Major depressive disorder, single episode, unspecified; D64.9 Anemia, unspecified; E86.9 Volume depletion, unspecified; E87.5 Hyperkalemia; I25.10 Atherosclerotic heart disease of native coronary artery without angina pectoris; D69.6 Thrombocytopenia, unspecified; I48.91 Unspecified atrial fibrillation; E03.9 Hypothyroidism, unspecified; Z90.49 Acquired absence of other specified parts of digestive tract; Z68.33 Body mass index [BMI] 33.0-33.9, adult
CPT/HCPCS: 36415; 36569; 36600; 70450; 71045; 74018; 74176; 74177; 74250; 76604; 80048; 80053; 80076; 82040; 82150; 82805; 82962; 83036; 83605; 83690; 83735; 84100; 84478; 84484; 85025; 85610; 85730; 86850; 86900; 86901; 87070; 87205; 87426; 93005; 93306; 94002; 94003; 94640; 95819; 96361; 96365; 96375; 97116; 97163; 97530; C9113; G0378; J1815; J1885; J2185; J2250; J2405; J2543; J3490; J7042; J7060; Q9956